=== PATIENT | female | born 1970 | race Two or more races ===

== ENCOUNTER 2025-06-05 10:59 | Emergency (ER) | payer MEDICAID, SELFPAY ==
[2025-06-05 11:18] VITALS: BP 149/81; PULSE 75; RESP 18; TEMP 36.7; O2SAT 97; BMI 23.1
--- NOTE | 2025-06-05 11:42 | XR_ITS ---
EXAMINATION: Left wrist 2 views TECHNIQUE: AP lateral left wrist 2 views Date and time: June 05, 2025, 1155 hours INDICATIONS: Patient fell today with injury of the wrist, wrist pain. FINDINGS: No fracture or dislocation No foreign body IMPRESSION: No fracture or dislocation
--- NOTE | 2025-06-05 11:42 | XR_ITS ---
EXAMINATION: Right knee 2 views TECHNIQUE: AP lateral right knee 2 views Date and time: June 05, 2025, 15 January INDICATIONS: Patient fell today with injury to knee, knee pain. FINDINGS: No fracture or dislocation. No foreign body IMPRESSION: No fracture or dislocation
--- NOTE | 2025-06-05 11:42 | XR_ITS ---
Examination: CT cervical spine without contrast 2-D sagittal reconstructions 2-D coronal reconstructions 3-D reconstructions. Exam date and time: June 05, 2025, 1222 hours INDICATIONS: Patient fell last night with injury to the neck, neck pain CTDI:vol (mGy) 14.8 DLP: (mGycm) 327 Technique: Multiple 2 mm axial sections of the cervical spine have been obtained. The coronal and sagittal reconstructions have been obtained. 3-D reconstructions have been obtained. Low dose protocols were performed. One or more of the following dose reduction techniques were used; automated exposure control, adjustment of the mA and/or KV according to patient size, use of iterative reconstruction technique. Findings: Axial sections demonstrate intact base of the skull. C1 exhibit satisfactory relationship to the odontoid. No acute cervical vertebral body fracture seen. Alignment posterior spinous processes satisfactory. Impression: No acute cervical fracture.
--- NOTE | 2025-06-05 11:42 | XR_ITS ---
Examination: CT brain head without contrast. 2-D sagittal coronal reconstructions Date and time of exam: June 05, 2025, 1222 hours INDICATIONS: Patient fell last night with injury to head, head pain CTDI: vol (mGy): 47.6 DLP: (mGycm): 940 Technique: Multiple CT axial sections of the brain have been obtained, 5 mm slice thickness. Contrast has not been administered. 2-D sagittal, coronal reconstructions have been obtained Low dose protocols were performed. One or more of the following dose reduction techniques were used; automated exposure control, adjustment of the mA and/or KV according to patient size, use of iterative reconstruction technique. Findings: No significant ventricular enlargement. Intra-axial or extra-axial hemorrhage density is not seen. No mass effect or midline shift Basal cisterns are not remarkable. Fourth ventricle is midline. Cranial vault intact. Impression: Negative for acute hemorrhage, mass effect or midline shift
--- NOTE | 2025-06-05 11:42 | XR_ITS ---
Examination: Right elbow 3 views Technique: Elbow AP, oblique, lateral 3 views Exam date and time: June 05, 2025, 1146 hours INDICATIONS: Patient fell today with injury the elbow, elbow pain. FINDINGS: Nonstandard views Suspicious for nondisplaced fracture radial head No dislocation IMPRESSION: Suspicious for nondisplaced acute fracture radial head.
--- NOTE | 2025-06-05 11:42 | XR_ITS ---
EXAMINATION: Left knee 2 views TECHNIQUE: 1. AP lateral left knee 2 views Date and time: June 05, 2025, 1146 hours INDICATIONS: Patient fell today with injury of the knee, knee pain. FINDINGS: No fracture or dislocation. Small knee effusion IMPRESSION: No fracture or dislocation
--- NOTE | 2025-06-05 11:42 | XR_ITS ---
EXAMINATION: Nasal bones 3 views TECHNIQUE: Kristofer, right and left lateral nasal bones 3 views Date and time: June 05, 2025, 1150 hours INDICATIONS: Patient fell today with injury to the nasal bones, nasal bone pain FINDINGS: Orbital rims appear intact No blood in the maxillary antra No nasal bone fracture depicted IMPRESSION: No nasal bone fracture noted
--- NOTE | 2025-06-05 11:45 | PD.EDFALL ---
ED Fall Injury RME/HPI General Chief Complaint: Fall Stated Complaint: Fall last night, hit her face Time Seen by Provider: 06/05/25 11:07 Arrival date/time: 06/05/25 10:59 55-year-old female patient came in for evaluation regarding ground-level fall. Hitting her face on the ground. Patient now complaining of abrasion to the forehead, also complaining of nose pain and swelling. Also complaining of right elbow pain, left wrist pain and bilateral knee pain. Patient denies any LOC. Patient denies any other complaints. Patient is not taking any blood thinner. Incident happened last night. Related Data Home Medications ?Medication ?Instructions ?Recorded ?Confirmed atorvastatin 40 mg tablet 40 mg PO QDAY 12/06/22 03/08/23 fenofibrate nanocrystallized 145 145 mg PO QDAY 12/06/22 03/08/23 mg tablet glipizide 5 mg tablet 5 mg PO QDAY 12/06/22 03/08/23 lisinopril 2.5 mg tablet 2.5 mg PO QDAY 12/06/22 03/08/23 metformin 1,000 mg tablet,extended 1,000 mg PO QDAY 12/06/22 03/08/23 release 24hr (osmotic) sumatriptan succinate 25 mg tablet See Rx Instructions PO .COMPLEX 12/06/22 03/08/23 semaglutide 14 mg tablet (Rybelsus) 14 mg PO QDAY 03/08/23 03/08/23 Previous Rx's ?Medication ?Instructions ?Recorded bacitracin zinc 500 unit/gram 1 applic topical TID #25 ea 06/05/25 topical ointment in packet ibuprofen 800 mg tablet 800 mg PO Q8H PRN pain #30 tabs 06/05/25 Allergies Allergy/AdvReac Type Severity Reaction Status Date / Time No Known Allergies Allergy Unverified 06/05/25 11:46 Review of Systems Review of Systems Narrative Review of Systems: Review of system reviewed and within normal limits except mentioned in HPI ED Exam Narrative Physical exam: VITAL SIGNS: Reviewed. GENERAL APPEARANCE: Alert and interactive, follows commands, no acute distress, HEAD AND FACE: Abrasion noted to the forehead ENT: PERRL, pink conjunctivitis, eyelid no trauma, Mucous membrane moist. Swelling of the nasal bridge noted with bruising NECK: Supple, nontender, no nuchal rigidity. CHEST: No tenderness, no crepitus, no paradoxical movement, no retractions. LUNGS: Clear, well ventilated, symmetric, no rales, no wheezing, no ronchi, no stridor, good breath sounds bilaterally. HEART: Regular rate, regular rhythm, no murmur, no gallops. ABDOMEN: Soft, positive bowel sounds, nondistended, no guarding, nontender, no rebound, no masses, RECTAL: Deferred. GENITAL: Deferred. NEUROLOGICAL: Gross motor function intact sensory function intact, Appropriate for age. MUSCULOSKELETAL: low back nontender, full range of motion. EXTREMITIES: Right elbow tenderness, mild swelling, no deformity, left wrist tenderness, no swelling or deformity, bilateral anterior knee tenderness, no swelling or deformity, full range of motion. SKIN: Color pink, dry, no rash, no lacerations, no abrasions, no contusions. LYMPHATICS: Deferred. Course Quality Measures none Orders Category Date Time Status sling [Splint / Immobilizer] STAT Care 06/05/25 13:[address] cervical spine wo con Stat Exams 06/05/25 11:[address] head/brain wo con Stat Exams 06/05/25 11:42 Completed XR elbow RT 2V Stat Exams 06/05/25 11:42 Completed XR knee limited LT 2V Stat Exams 06/05/25 11:42 Completed XR knee limited RT 2V Stat Exams 06/05/25 11:42 Completed XR nasal bones min 3V Stat Exams 06/05/25 11:42 Completed XR wrist LT 2V Stat Exams 06/05/25 11:42 Completed Acetaminophen Tab [Tylenol ES Tab] Med 06/05/25 11:42 Discontinued 1,000 mg PO X1 ONE TET,DIP/PERT AC (Adult)-Tdap [Boostrix Adult (Tdap) Med 06/05/25 11:42 Discontinued Vacc] 0.5 ml IMI .ONCE ONE Vital Signs Vital signs: Vital Signs Temperature 98.1 F 06/05/25 11:18 Pulse Rate 75 06/05/25 11:18 Respiratory Rate 18 06/05/25 11:18 Blood Pressure 149/81 H 06/05/25 11:18 Pulse Oximetry (%) 97 06/05/25 11:18 Oxygen Delivery Method Room Air 06/05/25 11:18 Fall MDM Narrative MDM Narrative:: 55-year-old female patient came in for evaluation regarding ground-level fall. Hitting her face on the ground. Patient now complaining of abrasion to the forehead, also complaining of nose pain and swelling. Also complaining of right elbow pain, left wrist pain and bilateral knee pain. Patient denies any LOC. Patient denies any other complaints. Patient is not taking any blood thinner. Incident happened last night. CT scan of the chest came back unremarkable. CT scan of the neck came back unremarkable. X-ray of the bilateral knee came back unremarkable. X-ray of the right elbow showed possible nondisplaced fracture of the radial head. Arms sling applied. Patient does not need splint at this time. Patient stable for discharge home. Patient data External records reviewed:: None Clinical information provided by:: patient Social determinants that could affect healthcare access:: none Patient has the following chronic illnesses:: Diabetes mellitus How is presenting disease/condition affected by chronic disease/condition?: uneffected by Evaluation data The following diagnostics were reviewed and interpreted by me:: lab results and radiology exam(s) Lab and/or radiology exams considered but not ordered:: None Interpretation Summary: See results MDM Medications / Prescriptions Medications or Prescriptions considered but not ordered:: None Medication administrations:: Medication Administration History Discontinued Medications Acetaminophen (Acetaminophen 500 Mg Tablet) 1,000 mg PO X1 ONE Stop: 06/05/25 11:43 Diphtheria/Tetanus/Acell Pertussis (Diphth,Pertuss(Acell),Tet Vac 0.5 Ml Syr- Adult) 0.5 ml IMi .ONCE ONE Stop: 06/05/25 11:43 Tylenol Boostrix Consultations Consultation(s) initiated? (list below): No Diagnosis Fall Differential Diagnosis: other (Fall, facial fracture forehead abrasions elbow pain) Most likely diagnosis given after review of the tests above:: forehead contusion abrasion, elbow pain s/p fall Admission Indicated Admission indicated?: not indicated Explain why admission is indicated or not indicated:: Stable Admission Request Was there a request for admission?: No Disposition Plan Disposition Plan: Discharge Discharge Attestation Discharge Attestation: The patient was given an opportunity to ask questions and understood the discharge instructions. Discharge instructions specifically effects, indications for sooner follow up or return to the emergency department, and the expected course of current diagnosis. Patient condition: Stable Discharge Plan Plan Patient Disposition: HOME (Self Care) Discharge Disposition comment: Stable Prescriptions/Referrals Prescriptions/Med Rec: New bacitracin zinc 500 unit/gram ointment in packet 1 applic topical TID Qty: 25 0RF ibuprofen 800 mg tablet 800 mg PO Q8H PRN (Reason: pain) Qty: 30 0RF No Action fenofibrate nanocrystallized 145 mg tablet 145 mg PO QDAY lisinopril 2.5 mg tablet 2.5 mg PO QDAY metformin 1,000 mg tablet extended release 24 hr 1,000 mg PO QDAY atorvastatin 40 mg tablet 40 mg PO QDAY glipizide 5 mg tablet 5 mg PO QDAY sumatriptan succinate 25 mg tablet See Rx Instructions PO .COMPLEX Rx Instructions: take 1 tab at onset of headache; if no relief may repeat 1 tab after at least 2 hrs; max = 4 tabs/24 hr PO Rybelsus 14 mg tablet 14 mg PO QDAY Patient Comments: TAKE 1 TABLET BY MOUTH EVERY MORNING ON EMPTY STOMACH Problem List Clinical Impression: Abrasion of forehead, Contusion of nose, Fall, Elbow pain, right Patient/Caregiver Discharge Instructions Discharge Activity: activity as tolerated Education Materials: ED Nasal Contusion Additional Instructions: Thank you for the opportunity for serving you today. You are stable for discharged . 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
[2025-06-05] MEDS: ACETAMINOPHEN 500 MG TABLET 1000 MG PO (13:35)
[2025-06-05] MEDS: DIPHTH,PERTUSS(ACELL),TET VAC 0.5 ML SYR- ADULT IMi (13:36)
== END 2025-06-05 13:39 | disposition home or self-care (01) ==
LOC: SERX 13:42
PROVIDERS: Emergency Provider Emergency Medicine; PCP Family Medicine
DX: S00.33XA Contusion of nose, initial encounter (principal); S00.81XA Abrasion of other part of head, initial encounter; W18.30XA Fall on same level, unspecified, initial encounter
CPT/HCPCS: 70160; 70450; 72125; 73070; 73100; 73560; 90471; 90715; 99283; A4565; A9270